=== PATIENT | female | born 1965 | race Caucasian/White ===

== ENCOUNTER → 2017-01-16 | Outpatient (CLI) | payer OTHER ==
[~2017-01-16] MED LIST: BUPR-79 PO; ESTR10CR; IRON PO; KETO10TA PO; METO25TA3 PO; MULT-506 PO; OMEG12006 PO; OXYC-57 PO; PROGESTERONE; TESTOSTERONE
== END | disposition home or self-care (01) ==
LOC: C.LAB1850 08:56
PROVIDERS: ATTEND Obstetrics & Gynecology
DX: N95.1 Menopausal and female climacteric states (principal)